=== PATIENT | male | born 1945 | race Caucasian/White ===

== ENCOUNTER 2018-02-01 09:53 | Day surgery (SDC) | payer MEDICARE, BC ==
[~2018-02-01] VITALS: Ht 175.4 cm; Wt 68.2 kg
[~2018-02-01 09:53] MED LIST: AMBIEN 10MG10 MG PO; ASPIRIN 32325 MG/TAB PO; ASPIRIN 81M81 MG/TA2 PO; CEPHALEXIN500 M1 PO; COMBIGAN 0.2%-0.5 ML OS; ELIQUIS 5MG PO; PRED FORTE 1 ML1 ML OU; Patient's Own Medica OP; TRAVATAN Z 5 ML5 ML OS
[2018-02-01 10:10] LABS: HEMATOCRIT 45.9 % (42.0-52.0); HEMOGLOBIN 15.6 g/dl (13.5-18.0); MEAN CELL VOLUME 91 fl (80.0-100.0); MEAN CORPUSCULAR HEMOGLOBIN 31 pg (27.0-31.0); MEAN CORPUSCULAR HGB CONC 34 g/dl (33.0-37.0); PLATELET COUNT 196 K/mm3 (130-400); RED BLOOD COUNT 5.02 M/mm3 (4.20-5.60); REDCELL DISTRIBUTION WIDTH-CV 12.7 % (11.5-14.5)
[2018-02-01 10:15] LABS: INR 1.7 (0.8-3.0); PROTHROMBIN TIME 19.5 SECONDS (9.7-12.8)
[2018-02-01 10:22] LABS: CALCIUM 9.7 mg/dL (8.4-10.2); CREATININE, serum 0.79 mg/dL (0.66-1.25); POTASSIUM 4.7 mmol/L (3.4-5.0)
[2018-02-01] MEDS ORDERED: ELIQUIS 5MG PO (10:26)
[2018-02-01] MEDS ORDERED: ASPIRIN 81M81 MG/TA2 PO (10:27)
[2018-02-01 10:43] VITALS: BP 147/87; PULSE 80; TEMP 97.7
[2018-02-01] MEDS ORDERED: TAMBOCOR 1100 MG/TAB PO (11:47)
[2018-02-01 11:55] VITALS: BP 101/65; PULSE 76
[2018-02-01 12:10] VITALS: BP 102/64; PULSE 71
[2018-02-01 12:20] VITALS: BP 111/73; PULSE 74
[2018-02-01 13:00] VITALS: BP 111/69; PULSE 69
== END 2018-02-01 13:11 | disposition home or self-care (01) ==
LOC: COL.CAR 09:53
PROVIDERS: Internal Medicine Cardiovascular Disease
DX: I48.0 Paroxysmal atrial fibrillation (principal); I49.5 Sick sinus syndrome; Z95.0 Presence of cardiac pacemaker; Z87.891 Personal history of nicotine dependence; E78.00 Pure hypercholesterolemia, unspecified; K22.70 Barrett's esophagus without dysplasia; J44.9 Chronic obstructive pulmonary disease, unspecified; Z87.11 Personal history of peptic ulcer disease
CPT/HCPCS: J2250; J2704; J3010; J7030

== ENCOUNTER 2019-02-16 08:12 | Day surgery (SDC) | payer MEDICARE, BC ==
[~2019-02-16] VITALS: Ht 175.3 cm; Wt 70.5 kg
[~2019-02-16 08:12] MED LIST changes: +TAMBOCOR 1100 MG/TAB PO
[2019-02-16 08:43] VITALS: BP 142/101; PULSE 95; TEMP 97.5
[2019-02-16] MEDS ORDERED: ZEBETA 5MG5 MG PO (08:50)
[2019-02-16] MEDS ORDERED: COMBIGAN 0.2%-0.5 ML OD (08:51)
[2019-02-16] MEDS ORDERED: COUMADIN 77.5 MG/TAB PO (08:52)
[2019-02-16] MEDS ORDERED: COUMADIN 5MG5 MG/TAB PO (08:54)
[2019-02-16] MEDS ORDERED: PRIL40 PO (08:55)
[2019-02-16] MEDS ORDERED: COMPLETE SENIOR1 TA1 PO (08:56)
--- NOTE | 2019-02-16 08:57 | NUR ---
TO RM AT 0820- CALL LIGHT IN REACH AT BEDSIDE.
[2019-02-16 10:25] VITALS: BP 108/75; PULSE 77
--- NOTE | 2019-02-16 10:25 | NUR ---
Patient arrived back to [facility], alert and oriented. Ambulated to chair without any difficulty. Denies and nausea or pain. Vital signs WNL. States he would like juice and a muffin. at bedside. Call san within reach will continue to monitor.
[2019-02-16 10:40] VITALS: BP 100/70; PULSE 70
[2019-02-16 10:55] VITALS: BP 94/58; PULSE 69
--- NOTE | 2019-02-16 11:09 | NUR ---
Patient is tolerating food and drink well. No difficulty swallowing. Vital signs stable. Will continue to monitor.
[2019-02-16 11:10] VITALS: BP 101/63; PULSE 70
--- NOTE | 2019-02-16 11:10 | NUR ---
Patient states that he is feeling well and ready to be discharged at this time. Waiting for Dr. Hu to speak with patient. Will continue to monitor.
--- NOTE | 2019-02-16 11:50 | NUR ---
Discharge instructions reviewed with patient and . All questions answered. IV removed. Patient to get dressed.
--- NOTE | 2019-02-16 11:58 | NUR ---
Patient patient wheeled down to lobby. To be driven home by .
== END 2019-02-16 11:58 | disposition home or self-care (01) ==
LOC: SDCO 08:12
DX: D12.5 Benign neoplasm of sigmoid colon (principal); K57.30 Diverticulosis of large intestine without perforation or abscess without bleeding; K21.0 Gastro-esophageal reflux disease with esophagitis; K92.1 Melena; K22.70 Barrett's esophagus without dysplasia; K25.7 Chronic gastric ulcer without hemorrhage or perforation; Z88.8 Allergy status to other drugs, medicaments and biological substances; Z88.6 Allergy status to analgesic agent; Z79.01 Long term (current) use of anticoagulants; I48.91 Unspecified atrial fibrillation; D64.9 Anemia, unspecified; Z87.891 Personal history of nicotine dependence; Z86.010 Personal history of colon polyps
CPT/HCPCS: OP; J2250; J2405; J3010; J7030

== ENCOUNTER 2019-04-04 08:33 | Inpatient (IN) | payer MEDICARE, BC ==
[~2019-04-04] VITALS: Ht 175.3 cm; Wt 70.4 kg
[~2019-04-04 08:33] MED LIST changes: +COMBIGAN 0.2%-0.5 ML OD; +COMPLETE SENIOR1 TA1 PO; +COUMADIN 5MG5 MG/TAB PO; +COUMADIN 77.5 MG/TAB PO; +PRIL40 PO; +ZEBETA 5MG5 MG PO
[2019-04-04 09:10] LABS: BASO # 0.1 (0.0-0.2); BASO % 1.3 % (0.0-2.0); EOS # 0.5 (0.0-0.7); EOS % 10.8 % (0-4.0); GRAN % 44.8 % (42.2-75.2); HEMATOCRIT 43.9 % (42.0-52.0); HEMOGLOBIN 14.8 g/dl (13.5-18.0); LYMPH # 1.3 (1.2-3.4); LYMPH % 27.5 % (20.0-51.0); MEAN CELL VOLUME 93 fl (80.0-100.0); MEAN CORPUSCULAR HEMOGLOBIN 31 pg (27.0-31.0); MEAN CORPUSCULAR HGB CONC 34 g/dl (33.0-37.0); MEAN PLATELET VOLUME 9.3 fl (7.4-10.4); MONO # 0.7 (0.1-0.6); MONO % 15.4 % (1.7-9.3); PLATELET COUNT 229 K/mm3 (130-400); RED BLOOD COUNT 4.73 M/mm3 (4.20-5.60); REDCELL DISTRIBUTION WIDTH-CV 12.2 % (11.5-14.5)
[2019-04-04 09:14] LABS: INR 3.3 (0.8-3.0)
[2019-04-04 09:15] VITALS: BP 147/79; PULSE 78; TEMP 97.9
[2019-04-04 09:23] LABS: ALBUMIN 4.2 gm/dL (3.5-5.0); BILIRUBIN,TOTAL 0.3 mg/dL (0.0-1.0); CALCIUM 9.2 mg/dL (8.4-10.2); CREATININE, serum 0.81 (0.66-1.25); MAGNESIUM 2.2 mg/dL (1.6-2.3); TOTAL PROTEIN 7.4 gm/dL (6.4-8.2)
[2019-04-04 11:21] VITALS: BP 130/79; PULSE 70; TEMP 97.9
--- NOTE | 2019-04-04 11:30 | NUR ---
Pt arrived to room 319 at this time. He is independent and A/O x3. Pt currently denies any pain but reports intermittent pain to L chest. Plan to have a stress test tomorrow discussed with patient who verbalizes understanding. Plan to be NPO after midnight. Pt currently denies SOB. No N/V. 20G started to RFA. Tele leads in place. Pt denies further needs at this time. Call light within reach.
[2019-04-04 12:23] VITALS: BP 130/79; PULSE 70
[2019-04-04 16:14] VITALS: BP 127/73; PULSE 75; TEMP 98.4
--- NOTE | 2019-04-04 18:41 | NUR ---
Pt had uneventful day. He denied any palpitations, one bout of chest pain which eventually was relieved without any interventions. VSS. Pt has no needs at this time. Call light within reach. Will continue to monitor.
[2019-04-04 19:24] VITALS: BP 138/72; PULSE 106; TEMP 98.3
[2019-04-05] VITALS (13 sets, daily range): BP systolic 109–146; BP diastolic 42–85; PULSE 48–80; TEMP 97.8–98.6
--- NOTE | 2019-04-05 07:25 | NUR ---
Pt assessment complete. Pt is sitting up in bed upon entry, he is A/O x3. His breathing is even and unlabored on RA. Pt denies SOB. No dizziness reported. Pt currently denies pain. No chest pain or palpitations through the night. Pt to remain NPO for michael. No needs at this time. Call light within reach.
[2019-04-05 07:38] LABS: INR 2.7 (0.8-3.0); PROTHROMBIN TIME 32.2 SECONDS (9.7-12.8)
--- NOTE | 2019-04-05 10:33 | NUR ---
ENEDELIA met with the patient and patient's , Bea, to discuss discharge plan. The patient lives in [place] with his . He reports independence with ADLs and has a walker. The patient's PCP is Dr. Norman Wolf and he receives his medications at [facility]. He reports no difficulties obtaining his meds. The patient does not have advanced directives, but he was interested in obtaining a form for DPOA-HC. ENEDELIA provided. The patient plans to return home with his upon discharge. No additional needs at this time.
--- NOTE | 2019-04-05 10:58 | NUR ---
Initial visit attempt; Patient indisposed, Foster Care Therapist introduced herself to patient's letting her know of the availability of spiritual care at [facility]. She thanked Foster Care Therapist for stopping.
[2019-04-05 13:21] LABS: CALCIUM 9.2 mg/dL (8.4-10.2); CREATININE, serum 0.73 (0.66-1.25); MAGNESIUM 2.2 mg/dL (1.6-2.3); POTASSIUM 4.3 mmol/L (3.4-5.0)
--- NOTE | 2019-04-05 19:27 | NUR ---
Pt had uneventful day. Denied any chest pain or palpitations. No concerns at this time. VSS. Call light within reach.
--- NOTE | 2019-04-05 20:45 | NUR ---
PT IN ROOM, AMBULATES WITHOUT ANY DIFFICULTIES, A/O X4, DENIES PAIN OR DISCOMFORT. HAS NO NEEDS AT THIS TIME, CALL LIGHT WITHIN REACH.
[2019-04-06 03:10] VITALS: BP 106/53; PULSE 73; TEMP 98.2
--- NOTE | 2019-04-06 06:00 | NUR ---
UNEVENTFUL NIGHT, PT WAS GIVEN A SLEEPING PILL THAT HELPED HIM TO SLEEP WELL. PT HAD NO S/S OF PAIN OR DISCOMFORT, RESP EVEN AND UNLABORED. PT WAS AWAKENED AROUND 0530 AND PT DENIED ANY PAIN OR DISCOMFORT AND FELT REFRESHED. NO NEEDS AT THIS TIME, CALL LIGHT WITHIN REACH.
[2019-04-06 07:19] LABS: INR 1.6 (0.8-3.0); PROTHROMBIN TIME 19.3 SECONDS (9.7-12.8)
[2019-04-06 07:21] LABS: CALCIUM 9.2 mg/dL (8.4-10.2); CREATININE, serum 0.85 (0.66-1.25); MAGNESIUM 2.1 mg/dL (1.6-2.3)
--- NOTE | 2019-04-06 07:40 | NUR ---
Received report from LAUREN Gomez.
[2019-04-06 08:26] VITALS: BP 111/63; PULSE 72; TEMP 98.1
[2019-04-06] MEDS ORDERED: BETAPACE 80MG80 MG PO (11:22)
--- NOTE | 2019-04-06 12:40 | NUR ---
Pt discharged to home, escorted to [facility], transported by private auto by spouse.
== END 2019-04-06 12:40 | disposition home or self-care (01) | DRG 310 ==
LOC: MEDICAL 08:33
PROVIDERS: ADMIT Internal Medicine Cardiovascular Disease
DX: I48.0 Paroxysmal atrial fibrillation (principal); I49.5 Sick sinus syndrome; E78.5 Hyperlipidemia, unspecified; Z79.01 Long term (current) use of anticoagulants; Z95.0 Presence of cardiac pacemaker
CPT/HCPCS: A9500

== ENCOUNTER 2019-10-16 06:56 | Day surgery (SDC) | payer MEDICARE, BC ==
[~2019-10-16] VITALS: Ht 175.3 cm; Wt 74.6 kg
[~2019-10-16 06:56] MED LIST changes: +BETAPACE 80MG80 MG PO
[2019-10-16] MEDS ORDERED: BETAPACE 80MG80 MG PO (07:13)
[2019-10-16] MEDS ORDERED: COMBIGAN 0.2%-010 ML OD (07:16)
[2019-10-16 07:18] VITALS: BP 138/85; PULSE 74; TEMP 97.6
[2019-10-16 07:54] LABS: HEMOGLOBIN 14.3 g/dl (13.5-18.0); MEAN CELL VOLUME 92 fl (80.0-100.0); MEAN CORPUSCULAR HEMOGLOBIN 31 pg (27.0-31.0); MEAN CORPUSCULAR HGB CONC 33 g/dl (33.0-37.0); MEAN PLATELET VOLUME 9.3 fl (7.4-10.4); PLATELET COUNT 213 K/mm3 (130-400); RED BLOOD COUNT 4.66 M/mm3 (4.20-5.60); REDCELL DISTRIBUTION WIDTH-CV 12.6 % (11.5-14.5)
[2019-10-16 07:59] LABS: PROTHROMBIN TIME 36.7 SECONDS (9.7-12.8)
[2019-10-16 08:02] LABS: PARTIAL THROMBOPLASTIN TIME 46.1 SECONDS (26.0-37.0)
[2019-10-16 08:07] LABS: CALCIUM 9.3 mg/dL (8.4-10.2); CREATININE, serum 0.85 (0.66-1.25); MAGNESIUM 2.2 mg/dL (1.6-2.3); POTASSIUM 4.2 mmol/L (3.4-5.0)
[2019-10-16 08:37] LABS: THYROID STIMULATING HORMONE 1.56 uIU/mL (0.465-4.680)
[2019-10-16] MEDS ORDERED: BETAPACE 120MG120 MG PO (08:58)
[2019-10-16 09:10] VITALS: BP 110/69; PULSE 69
--- NOTE | 2019-10-16 09:10 | NUR ---
PT tolerated cardioversion well, report received from Drake AGUILAR. Pt is awake and alert, p,w,d, sinus rhythm 60's on monitor. wctm.
[2019-10-16 09:25] VITALS: BP 120/80; PULSE 71
[2019-10-16 09:40] VITALS: BP 118/75; PULSE 70
[2019-10-16 09:55] VITALS: BP 115/76; PULSE 73
--- NOTE | 2019-10-16 10:25 | NUR ---
Pt is ready for discharge. I reviewed written discharge/rx/fu instructions with patient and . they didn't have any questions at time of discharge. saline lock to left hand was dc'd with cath intact, dressing applied after holding pressure for several minutes. Pt has been able to drink with no problem and was ambulatory with steady gait to restroom prior to his departure. escorted to exit via wheelchair.
== END 2019-10-16 10:25 | disposition home or self-care (01) ==
LOC: COL.CAR 06:56
PROVIDERS: Internal Medicine Cardiovascular Disease
DX: I48.0 Paroxysmal atrial fibrillation (principal); I49.5 Sick sinus syndrome; Z95.0 Presence of cardiac pacemaker; J44.9 Chronic obstructive pulmonary disease, unspecified; Z88.8 Allergy status to other drugs, medicaments and biological substances; Z79.01 Long term (current) use of anticoagulants; Z79.899 Other long term (current) drug therapy; Z87.891 Personal history of nicotine dependence; I10 Essential (primary) hypertension
CPT/HCPCS: J2704

== ENCOUNTER → 2020-10-01 | Outpatient (CLI) | payer MEDICARE, BC ==
[~2020-10-01] MED LIST changes: +BETAPACE 120MG120 MG PO; +COMBIGAN 0.2%-010 ML OD
== END ==
LOC: COL.RAD 13:52
DX: S00.03XA Contusion of scalp, initial encounter (principal)

== ENCOUNTER 2020-11-20 07:27 | Day surgery (SDC) | payer MEDICARE, BC ==
[~2020-11-20] VITALS: Ht 175.4 cm; Wt 85.3 kg
[2020-11-20 09:00] VITALS: BP 135/83; PULSE 70; TEMP 98.3
[2020-11-20 09:16] LABS: HEMATOCRIT 42.7 % (42.0-52.0); HEMOGLOBIN 14.5 g/dl (13.5-18.0); MEAN CELL VOLUME 89 fl (80.0-100.0); MEAN CORPUSCULAR HEMOGLOBIN 30 pg (27.0-31.0); MEAN CORPUSCULAR HGB CONC 34 g/dl (33.0-37.0); MEAN PLATELET VOLUME 9.5 fl (7.4-10.4); PLATELET COUNT 203 K/mm3 (130-400); RED BLOOD COUNT 4.78 M/mm3 (4.20-5.60); REDCELL DISTRIBUTION WIDTH-CV 12.5 % (11.5-14.5)
[2020-11-20 09:19] LABS: INR 2.4 (0.8-3.0); PROTHROMBIN TIME 26.6 SECONDS (9.7-12.8)
[2020-11-20] MEDS ORDERED: LUMIGAN 5 ML5 M1 OD (09:19)
[2020-11-20 09:21] LABS: PARTIAL THROMBOPLASTIN TIME 42.4 SECONDS (26.0-37.0)
[2020-11-20] MEDS ORDERED: AVAPRO75 MG PO (09:21)
[2020-11-20] MEDS ORDERED: BETAPACE 120MG120 MG PO (09:26)
[2020-11-20] MEDS ORDERED: PACERONE400 MG PO (09:38)
[2020-11-20] MEDS ORDERED: ZEBETA 5MG5 MG PO (09:38)
[2020-11-20 09:40] VITALS: BP 130/78; PULSE 70; TEMP 98.3
--- NOTE | 2020-11-20 09:40 | NUR ---
Report from Torie AGUILAR. Pt resting quietly no c/o pain or needs at this time
[2020-11-20 09:55] VITALS: BP 128/76; PULSE 72; TEMP 98.3
[2020-11-20 10:10] VITALS: BP 130/82; PULSE 72; TEMP 98.3
[2020-11-20 10:15] LABS: CALCIUM 8.8 mg/dL (8.4-10.2); CREATININE, serum 0.86 (0.66-1.25); MAGNESIUM 2.2 mg/dL (1.6-2.3); POTASSIUM 4.4 mmol/L (3.4-5.0)
[2020-11-20 10:40] VITALS: BP 128/72; PULSE 68; TEMP 98.3
[2020-11-20 10:46] LABS: THYROID STIMULATING HORMONE 1.63 uIU/mL (0.465-4.680)
[2020-11-20 11:00] VITALS: BP 133/77; PULSE 78; TEMP 98.3
--- NOTE | 2020-11-20 11:00 | NUR ---
INT discontinued intact. Discharge instructions. Transferred to private car by allie
== END 2020-11-20 11:00 | disposition home or self-care (01) ==
LOC: COL.CAR 07:27
PROVIDERS: Internal Medicine Cardiovascular Disease
DX: I48.91 Unspecified atrial fibrillation (principal); J44.9 Chronic obstructive pulmonary disease, unspecified; E78.00 Pure hypercholesterolemia, unspecified; I49.5 Sick sinus syndrome; E78.5 Hyperlipidemia, unspecified; I10 Essential (primary) hypertension; K21.9 Gastro-esophageal reflux disease without esophagitis; M19.90 Unspecified osteoarthritis, unspecified site; Z87.891 Personal history of nicotine dependence; Z95.0 Presence of cardiac pacemaker; Z96.651 Presence of right artificial knee joint; Z85.828 Personal history of other malignant neoplasm of skin
CPT/HCPCS: J2704

== ENCOUNTER → 2022-03-15 | Outpatient (CLI) | payer MEDICARE, BC ==
[~2022-03-15] MED LIST changes: +AVAPRO75 MG PO; +LUMIGAN 5 ML5 M1 OD; +PACERONE400 MG PO
== END ==
LOC: ZCOL.LAB 17:09
DX: Z01.89 Encounter for other specified special examinations (principal)

== ENCOUNTER → 2022-12-16 | Outpatient (CLI) | payer MEDICARE, BC | LOC: COL.RAD 12:14 | DX: J43.8 Other emphysema (principal); R91.1 Solitary pulmonary nodule ==

== ENCOUNTER 2023-01-31 05:34 | Inpatient (IN) | payer MEDICARE, BC ==
[~2023-01-31] VITALS: Ht 175.3 cm; Wt 69.5 kg
[2023-02-08 09:35] VITALS: BP 148/74; PULSE 78; TEMP 97.3
[2023-02-08] MEDS ORDERED: TIAZAC120 MG PO (10:00)
[2023-02-08] MEDS ORDERED: COZAAR100 MG PO (10:01)
[2023-02-08 10:22] LABS: CALCIUM 8.9 mg/dL (8.4-10.2); CREATININE, serum 1.09 mg/dL (0.72-1.25); MAGNESIUM 1.9 mg/dL (1.6-2.6); POTASSIUM 4.4 mmol/L (3.5-4.5)
[2023-02-08 11:37] VITALS: BP 153/70; PULSE 71; TEMP 98.1
--- NOTE | 2023-02-08 11:42 | NUR ---
1100 PT RESTING IN THE BED STATED HE WAS GOING TO ORDER LUNCH SOON. FIRST DOSE OF TIKOSYN ADMINISTERED AT THIS TIME. INITIAL QTcwas 449.
[2023-02-08 12:10] LABS: INR 1.9 (0.8-3.0); PROTHROMBIN TIME 21.4 SECONDS (9.7-12.8)
[2023-02-08 15:44] VITALS: BP 120/79; PULSE 74; TEMP 97.9
--- NOTE | 2023-02-08 18:16 | NUR ---
PT HAS DONE WELL THIS AFTERNOON. REMAINS ON TELE, PACED. VITALS ARE STABLE HR 74. REPEAT EKG OBTAINED 2HRS POST TIKOSYN INITIATION, QTc 464, NEXT DOSE SCHEDULED FOR 2099. PT STATED NO COMPLAINTS OR QUESTIONS AT THIS TIME.
[2023-02-08 20:41] VITALS: BP 136/65; PULSE 73; TEMP 98
--- NOTE | 2023-02-08 23:06 | NUR ---
Pt's assessment was completed around 2014. A&Ox4. No signs or symptoms of pain were identified at this time. Tikosyn administered at 2112 and RT notified. Next EKG will be around 2314. Pt was also requesting to have his Ambien to help him sleep. RAC INT is CDI. No further needs or requests were expressed. Belongings and call light are within reach.
[2023-02-08 23:25] VITALS: BP 118/55; PULSE 76; TEMP 97.7
[2023-02-09 04:19] VITALS: BP 109/57; PULSE 74; TEMP 98.2
[2023-02-09 07:14] LABS: INR 1.7 (0.8-3.0); PROTHROMBIN TIME 19.4 SECONDS (9.7-12.8)
[2023-02-09 07:20] LABS: CALCIUM 8.7 mg/dL (8.4-10.2); CREATININE, serum 1.01 mg/dL (0.72-1.25); POTASSIUM 4.3 mmol/L (3.5-4.5)
[2023-02-09 08:00] VITALS: BP 110/60; PULSE 73; TEMP 97.8
[2023-02-09] MEDS ORDERED: CELEBREX 200MG200 MG PO (08:56)
--- NOTE | 2023-02-09 09:14 | NUR ---
pt resting in bed, at bedside. meds given and assessment complete. vss and tele in place. pt reports feeling dizzy this morning when he was ambulating in the halls, otherwise no other needs this morning. call light in reach.
--- NOTE | 2023-02-09 10:00 | NUR ---
SW met with pt for intake. Pt confirmed living in [place], [place] with spouse Akanksha Washburn who is listed as NOK and was also present. Confirmed phone number as [phone]. [facility] and has a walker due to a previous knee injury however he does not use it. Pt denied oxygen use at home. Pt reports 12 stairs in the home and denies having any issues with them. Pt reports Dr. Wolf as [facility]CP [facility]. Pt reports having a DPOA at home, reports she can bring if needed. Pt denies any other needs. Discharge Plan Home with ...HH if ordered
--- NOTE | 2023-02-09 10:09 | NUR ---
Initial visit; Patient appears to be doing well. His beside him holding his hand and smiling states also that all is going fine. Rolling Down Machine Operator offered God's blessings to the two of them.
[2023-02-09 12:00] VITALS: BP 125/66; PULSE 70; TEMP 98.3
[2023-02-09 16:00] VITALS: BP 134/64; PULSE 70; TEMP 97.9
[2023-02-09 19:25] VITALS: BP 137/67; PULSE 77; TEMP 97.9
[2023-02-09 23:43] VITALS: BP 129/60; PULSE 74; TEMP 98
[2023-02-10 04:10] VITALS: BP 117/56; PULSE 76; TEMP 98.1
[2023-02-10 06:54] LABS: INR 1.5 (0.8-3.0); PROTHROMBIN TIME 16.9 SECONDS (9.7-12.8)
[2023-02-10 07:15] LABS: CALCIUM 8.7 mg/dL (8.4-10.2); CREATININE, serum 1.31 mg/dL (0.72-1.25); MAGNESIUM 2.1 mg/dL (1.6-2.6); POTASSIUM 4.3 mmol/L (3.5-4.5)
[2023-02-10 08:00] VITALS: BP 126/70; PULSE 62; TEMP 98.4
--- NOTE | 2023-02-10 08:52 | NUR ---
Pt PLEASANT THIS AM. SHIFT ASSESSMENT PERFORMED, SEE DOCUMENTATION. NO FURTHER REQUESTS AT THIS TIME. BED IN LOW POSITION AND CALL LIGHT WITHIN REACH.
--- NOTE | 2023-02-10 10:00 | NUR ---
PER PHARMACIST WE ARE SENDING HOME PATIENT WITH PM DOSE OF TIKOSYN FOR TONIGHT AND AM DOSE FOR TOMORROW.
--- NOTE | 2023-02-10 10:30 | NUR ---
PER ELIDA IN CARDIOLOGY WAIT FOR REPEAT EKG 2 HOURS POST AM EKG MEDICINE GIVEN BEFORE DISCHARGING PATIENT.
[2023-02-10] MEDS ORDERED: TIKOSYN0.25 MG PO (10:41)
[2023-02-10 11:13] VITALS: BP 138/70; PULSE 71; TEMP 98.8
[2023-02-10 11:18] VITALS: BP 156/67; PULSE 86; TEMP 97.6
--- NOTE | 2023-02-10 12:14 | NUR ---
PATIENT GIVEN DISCHARGE EDUCATION AND INSTRUCTIONS. RN REVIEWED MEDICATION SCHEDULE WIHT PATIENT. PHARMACY GAVE PATIENT TIKOSYN PRESCRIPTION. IV AND TELE DISCONTINUED.
--- NOTE | 2023-02-10 12:30 | NUR ---
PATIENT TAKEN TO ER ENTRANCE VIA WHEELCHAIR BY PCT WHERE HE LEFT IN STABLE CONDITION WITH HIS .
== END 2023-02-10 12:30 | disposition home or self-care (01) | DRG 310 ==
LOC: MEDICAL 02-08 05:33
PROVIDERS: ADMIT Internal Medicine Cardiovascular Disease
DX: I48.0 Paroxysmal atrial fibrillation (principal); J44.9 Chronic obstructive pulmonary disease, unspecified; Z88.6 Allergy status to analgesic agent; Z88.8 Allergy status to other drugs, medicaments and biological substances; Z23 Encounter for immunization